=== PATIENT | male | born 1985 | race Two or more races ===

== ENCOUNTER 2018-11-05 18:53 | Emergency (ER) | payer OTHER ==
[~2018-11-05] VITALS: Ht 190.5 cm; Wt 72.6 kg
== END 2018-11-05 21:26 | disposition home or self-care (01) ==
LOC: ER 18:53
DX: J11.1 Influenza due to unidentified influenza virus with other respiratory manifestations (principal)

== ENCOUNTER 2018-11-11 09:59 | Emergency (ER) | payer OTHER ==
[~2018-11-11] VITALS: Ht 190.5 cm; Wt 70.3 kg
== END 2018-11-11 13:16 | disposition home or self-care (01) ==
LOC: ER 09:59
DX: M54.6 Pain in thoracic spine (principal)

== ENCOUNTER 2019-09-01 13:50 | Emergency (ER) | payer OTHER ==
[~2019-09-01] VITALS: Ht 190.5 cm; Wt 70.3 kg
== END 2019-09-01 15:26 | disposition home or self-care (01) ==
LOC: ER 13:50
DX: J40 Bronchitis, not specified as acute or chronic (principal); R21 Rash and other nonspecific skin eruption